=== PATIENT | female | born 1950 | race Caucasian/White ===

== ENCOUNTER 2017-09-14 16:18 | Inpatient (IN) | payer OTHER ==
[~2017-09-14] VITALS: Ht 152.4 cm; Wt 101.2 kg
[2017-09-14 16:27] VITALS: Ht 152.4 cm; Wt 101.2 kg
[2017-09-15 01:56] LABS: BASOPHIL % 1.3 % (0-2); PLATELET COUNT 342 x10^3mcL (130-400); RED CELL DISTRIBUTION WIDTH 13.3 % (11.5-14.5)
[2017-09-15 02:14] LABS: CALCIUM 9.5 mg/dL (8.5-10.1); CHLORIDE SERUM 101 mmol/L (98-107); CREATININE SERUM 0.8 mg/dL (0.6-1.0); GFR1 > 60 mL/min; GLUCOSE SERUM 226 mg/dL (74-106); POTASSIUM SERUM 4.2 mmol/L (3.5-5.1); SODIUM SERUM 139 mmol/L (136-145)
[2017-09-15 02:26] LABS: ALKALINE PHOSPHATASE 89 U/L (46-116); ALT/SGPT 29 U/L (14-59); AST/SGOT 28 U/L (15-37); BILIRUBIN TOTAL 0.42 mg/dL (0.20-1.00); TOTAL PROTEIN, SERUM 7.7 g/dL (6.4-8.2)
[2017-09-15 02:27] LABS: ALBUMIN 3.1 g/dL (3.4-5.0)
[2017-09-15 02:53] LABS: microscopic required? YES; urine erythrocyte TRACE (NEGATIVE)
[2017-09-15] MEDS ORDERED: METFORMIN HYDR500 M1 (07:08)
[2017-09-15 09:58] LABS: CHOLESTEROL/HDL RATIO 4.3
[2017-09-15 10:04] LABS: FREE T4 3.61 ng/dL (0.76-1.46); T4(THYROXINE) 11.1 ug/dL (4.7-13.3)
[2017-09-15 13:02] VITALS: BP 133/62
[2017-09-15 14:41] VITALS: BP 133/62
[2017-09-15] MEDS ORDERED: JANUMET 50-1,01 EACH PO (15:57)
[2017-09-15] MEDS ORDERED: GLUCOTROL5 MG PO (15:58)
[2017-09-15] MEDS ORDERED: CLARITIN10 MG PO (15:59)
[2017-09-15] MEDS ORDERED: ZOCOR40 MG PO (16:01)
[2017-09-15] MEDS ORDERED: COZAAR25 M1 PO (16:01)
[2017-09-15] MEDS ORDERED: NEOMYCIN/POLY B10 M1 AU (16:03)
[2017-09-15] MEDS ORDERED: MAXITROL1 OIN OU (16:04)
[2017-09-15] MEDS ORDERED: CROMOLYN SODIUM10 ML OU (16:05)
[2017-09-15] MEDS ORDERED: CLOBETASOL PROP0.05% TOP (16:07)
[2017-09-15] MEDS ORDERED: ECONAZOLE NITRATE1% TOP (16:07)
[2017-09-15] MEDS ORDERED: FLUOCINONIDE0.05% TOP (16:08)
[2017-09-15 16:21] VITALS: BP 137/72
[2017-09-15 21:19] VITALS: BP 94/64
[2017-09-16 05:28] VITALS: BP 127/58
[2017-09-16 09:43] VITALS: BP 121/59
[2017-09-16 10:35] LABS: BASOPHIL % 0.3 % (0-2); PLATELET COUNT 282 x10^3mcL (130-400); RED CELL DISTRIBUTION WIDTH 14.4 % (11.5-14.5)
[2017-09-16 10:54] LABS: CALCIUM 8.8 mg/dL (8.5-10.1); CARBON DIOXIDE 28.1 mmol/L (21-32); MAGNESIUM 1.9 mg/dL (1.8-2.4); PHOSPHOROUS 3.2 mg/dL (2.5-4.9); POTASSIUM SERUM 4.3 mmol/L (3.5-5.1)
[2017-09-16 13:25] VITALS: BP 123/59
[2017-09-16 17:30] VITALS: BP 128/58
[2017-09-16 21:19] VITALS: BP 141/60
[2017-09-17 06:06] VITALS: BP 134/64
[2017-09-17 07:50] LABS: CALCIUM 9.4 mg/dL (8.5-10.1); CARBON DIOXIDE 27.2 mmol/L (21-32); CHLORIDE SERUM 103 mmol/L (98-107); CREATININE SERUM 0.9 mg/dL (0.6-1.0); GFR1 > 60 mL/min; GLUCOSE SERUM 189 mg/dL (74-106); MAGNESIUM 2.1 mg/dL (1.8-2.4); PHOSPHOROUS 3.6 mg/dL (2.5-4.9); POTASSIUM SERUM 4.4 mmol/L (3.5-5.1); SODIUM SERUM 138 mmol/L (136-145)
[2017-09-17 07:52] LABS: BASOPHIL % 0.3 % (0-2); PLATELET COUNT 291 x10^3mcL (130-400)
[2017-09-17 08:11] LABS: RED CELL DISTRIBUTION WIDTH 14.6 % (11.5-14.5)
[2017-09-17 08:54] VITALS: BP 124/63
[2017-09-17 13:07] VITALS: BP 119/56
[2017-09-17 17:38] VITALS: BP 111/54
[2017-09-17 21:05] VITALS: BP 148/68
[2017-09-18 06:22] VITALS: BP 139/61
[2017-09-18 08:28] LABS: CALCIUM 9.5 mg/dL (8.5-10.1); CARBON DIOXIDE 28.4 mmol/L (21-32); CHLORIDE SERUM 104 mmol/L (98-107); CREATININE SERUM 0.9 mg/dL (0.6-1.0); GFR1 > 60 mL/min; GLUCOSE SERUM 137 mg/dL (74-106); MAGNESIUM 1.8 mg/dL (1.8-2.4); PHOSPHOROUS 3.6 mg/dL (2.5-4.9); POTASSIUM SERUM 4.3 mmol/L (3.5-5.1); SODIUM SERUM 140 mmol/L (136-145)
[2017-09-18 08:39] LABS: BASOPHIL % 0.3 % (0-2); PLATELET COUNT 309 x10^3mcL (130-400); RED CELL DISTRIBUTION WIDTH 14.4 % (11.5-14.5)
[2017-09-18 09:13] VITALS: BP 143/75
[2017-09-18 14:12] VITALS: BP 150/68
[2017-09-18] MEDS ORDERED: LAC PO (14:53)
[2017-09-18] MEDS ORDERED: CLINDAMYCIN HC300 MG PO (14:53)
[2017-09-18] MEDS ORDERED: LEVAQUIN750 MG PO (14:53)
[2017-09-18 16:31] VITALS: BP 150/68
== END 2017-09-18 17:42 | disposition home or self-care (01) | DRG 137 ==
LOC: ED 16:18 → DU 09-15 06:35
PROVIDERS: Emergency Medicine; Student in an Organized Health Care Education/Training Program
DX: J69.0 Pneumonitis due to inhalation of food and vomit (principal); J96.21 Acute and chronic respiratory failure with hypoxia; I50.43 Acute on chronic combined systolic (congestive) and diastolic (congestive) heart failure; E44.0 Moderate protein-calorie malnutrition; D68.69 Other thrombophilia; E11.65 Type 2 diabetes mellitus with hyperglycemia; Z68.41 Body mass index [BMI] 40.0-44.9, adult; J45.901 Unspecified asthma with (acute) exacerbation; B35.1 Tinea unguium; N39.0 Urinary tract infection, site not specified; B35.3 Tinea pedis; M94.0 Chondrocostal junction syndrome [Tietze]; E78.5 Hyperlipidemia, unspecified; Z79.84 Long term (current) use of oral hypoglycemic drugs; I11.0 Hypertensive heart disease with heart failure; Z90.710 Acquired absence of both cervix and uterus; I35.0 Nonrheumatic aortic (valve) stenosis; R07.89 Other chest pain
CPT/HCPCS: 82962; 83880; 84439; 87804; 94150; J0456; J0696; J1956; J3490; J7030; J7040; J7620; J7633; Q0092

== ENCOUNTER 2017-10-18 02:59 | Inpatient (IN) | payer OTHER ==
[~2017-10-18] VITALS: Ht 152.4 cm; Wt 98.6 kg
[~2017-10-18 02:59] MED LIST: CLARITIN10 MG PO; CLINDAMYCIN HC300 MG PO; CLOBETASOL PROP0.05% TOP; COZAAR25 M1 PO; CROMOLYN SODIUM10 ML OU; ECONAZOLE NITRATE1% TOP; FLUOCINONIDE0.05% TOP; GLUCOTROL5 MG PO; JANUMET 50-1,01 EACH PO; LAC PO; LEVAQUIN750 MG PO; MAXITROL1 OIN OU; METFORMIN HYDR500 M1; NEOMYCIN/POLY B10 M1 AU; ZOCOR40 MG PO
[2017-10-18 04:03] LABS: BASOPHIL % 1.1 % (0-2); PLATELET COUNT 337 x10^3mcL (130-400)
[2017-10-18 04:04] LABS: RED CELL DISTRIBUTION WIDTH 14.6 % (11.5-14.5)
[2017-10-18 04:15] LABS: CALCIUM 9.1 mg/dL (8.5-10.1); CARBON DIOXIDE 29.7 mmol/L (21-32); CHLORIDE SERUM 106 mmol/L (98-107); CREATININE SERUM 0.8 mg/dL (0.6-1.0); GFR1 > 60 mL/min; GLUCOSE SERUM 181 mg/dL (74-106); POTASSIUM SERUM 3.9 mmol/L (3.5-5.1); SODIUM SERUM 142 mmol/L (136-145)
[2017-10-18 04:21] LABS: ALKALINE PHOSPHATASE 69 U/L (46-116); ALT/SGPT 24 U/L (14-59); AST/SGOT 19 U/L (15-37); BILIRUBIN TOTAL 0.55 mg/dL (0.20-1.00); TOTAL PROTEIN, SERUM 7.6 g/dL (6.4-8.2)
[2017-10-18 04:22] LABS: microscopic required? NO
[2017-10-18 04:41] LABS: UA SPECIFIC GRAVITY 1.015 (1.005-1.035)
[2017-10-18 04:42] LABS: urine erythrocyte NEGATIVE (NEGATIVE)
[2017-10-18 04:53] LABS: AMPHETAMINE QUAL UR NONE DETECTED (NEG <=1000)
[2017-10-18] MEDS ORDERED: METFORMIN HCL1000 MG (06:34)
[2017-10-18] MEDS ORDERED: PIOGLITAZONE HC30 MG (06:34)
[2017-10-18] MEDS ORDERED: LOSARTAN POTASS25 M1 (06:34)
[2017-10-18] MEDS ORDERED: GLUCOTROL5 MG (06:34)
[2017-10-18] MEDS ORDERED: VENTOLIN H0.09 MG/A1 (06:35)
[2017-10-18 08:12] VITALS: BP 148/84
[2017-10-18 09:50] VITALS: BP 148/84
[2017-10-18 11:15] LABS: CHOLESTEROL/HDL RATIO 2.9; MAGNESIUM 2.1 mg/dL (1.8-2.4); PHOSPHOROUS 2.6 mg/dL (2.5-4.9)
[2017-10-18 13:48] VITALS: BP 136/71
[2017-10-18 16:54] VITALS: BP 131/66
[2017-10-18 19:54] VITALS: BP 114/56
[2017-10-19 05:21] VITALS: BP 107/56
[2017-10-19 06:56] LABS: BASOPHIL % 0.4 % (0-2); PLATELET COUNT 307 x10^3mcL (130-400)
[2017-10-19 06:59] LABS: CALCIUM 9.3 mg/dL (8.5-10.1); CARBON DIOXIDE 28.6 mmol/L (21-32); MAGNESIUM 2.1 mg/dL (1.8-2.4); PHOSPHOROUS 3.3 mg/dL (2.5-4.9)
[2017-10-19 07:18] LABS: RED CELL DISTRIBUTION WIDTH 14.6 % (11.5-14.5)
[2017-10-19 09:47] VITALS: BP 134/59
[2017-10-19 14:05] VITALS: BP 141/54
[2017-10-19 18:10] VITALS: BP 150/59
[2017-10-19 20:45] VITALS: BP 158/63
[2017-10-20 05:29] VITALS: BP 134/74
[2017-10-20 05:34] LABS: BASOPHIL % 0.4 % (0-2); PLATELET COUNT 308 x10^3mcL (130-400)
[2017-10-20 05:41] LABS: RED CELL DISTRIBUTION WIDTH 14.9 % (11.5-14.5)
[2017-10-20 05:45] LABS: CALCIUM 9.1 mg/dL (8.5-10.1); CARBON DIOXIDE 26.2 mmol/L (21-32); POTASSIUM SERUM 3.8 mmol/L (3.5-5.1)
[2017-10-20 10:13] VITALS: BP 147/71
[2017-10-20 11:04] VITALS: Ht 152.4 cm; Wt 98.6 kg
[2017-10-20 12:54] VITALS: BP 142/53
[2017-10-20 17:14] VITALS: BP 123/55
[2017-10-20 20:58] VITALS: BP 139/61
[2017-10-21 05:47] VITALS: BP 138/69
[2017-10-21 07:12] LABS: BASOPHIL % 0.9 % (0-2); PLATELET COUNT 333 x10^3mcL (130-400); RED CELL DISTRIBUTION WIDTH 14.8 % (11.5-14.5)
[2017-10-21 09:07] VITALS: BP 132/70
[2017-10-21 12:35] VITALS: BP 129/81
[2017-10-21 17:00] VITALS: BP 130/64
[2017-10-21 21:06] VITALS: BP 133/55
[2017-10-22] VITALS (12 sets, daily range): BP systolic 100–144; BP diastolic 41–76
[2017-10-22 15:00] LABS: APPEARANCE FLUID HAZY; COLOR FLUID PALE YELLOW; SOURCE FLUID THORACENTESIS
[2017-10-22 15:01] LABS: LYMPHOCYTE FLUID 80 %; RBC FLUID 1794 /cumm; WBC FLUID 1593 /cumm
[2017-10-23 06:07] LABS: BASOPHIL % 0.3 % (0-2); PLATELET COUNT 311 x10^3mcL (130-400)
[2017-10-23 06:16] VITALS: BP 124/64
[2017-10-23 06:32] LABS: CARBON DIOXIDE 28.1 mmol/L (21-32); MAGNESIUM 1.9 mg/dL (1.8-2.4); PHOSPHOROUS 3.7 mg/dL (2.5-4.9); POTASSIUM SERUM 4.3 mmol/L (3.5-5.1); RED CELL DISTRIBUTION WIDTH 15.3 % (11.5-14.5)
[2017-10-23 09:03] VITALS: BP 150/73
[2017-10-23 09:20] VITALS: BP 128/58
[2017-10-23] MEDS ORDERED: LEVAQUIN750 MG PO (09:31)
[2017-10-23] MEDS ORDERED: CLEOCIN HCL300 MG PO (09:33)
[2017-10-23] MEDS ORDERED: LAC PO (09:34)
== END 2017-10-23 15:10 | disposition home or self-care (01) | DRG 137 ==
LOC: ED 02:59 → DU 06:28 → MU 06:28 → DU 08:01 → MU 10-22 08:53
PROVIDERS: Emergency Medicine; Family Medicine
PROC: 0W993ZZ Drainage of Right Pleural Cavity, Percutaneous Approach (ICD-10-PCS; principal; 2017-10-23)
DX: J69.0 Pneumonitis due to inhalation of food and vomit (principal); E44.0 Moderate protein-calorie malnutrition; J90 Pleural effusion, not elsewhere classified; I50.9 Heart failure, unspecified; E11.65 Type 2 diabetes mellitus with hyperglycemia; I35.0 Nonrheumatic aortic (valve) stenosis; E78.2 Mixed hyperlipidemia; J45.909 Unspecified asthma, uncomplicated; Z79.84 Long term (current) use of oral hypoglycemic drugs; I12.9 Hypertensive chronic kidney disease with stage 1 through stage 4 chronic kidney disease, or unspecified chronic kidney disease; M54.5 Low back pain; D72.829 Elevated white blood cell count, unspecified; E66.01 Morbid (severe) obesity due to excess calories; E78.00 Pure hypercholesterolemia, unspecified; Z79.899 Other long term (current) drug therapy
CPT/HCPCS: 32555; 82962; 83880; 87804; 88344; 94150; C1729; J1956; J2543; J3490; J7030; J7040; J7620; Q0092

== ENCOUNTER 2018-01-04 22:34 | Inpatient (IN) | payer OTHER ==
[~2018-01-04] VITALS: Ht 157.5 cm; Wt 98.6 kg
[~2018-01-04 22:34] MED LIST changes: +CLEOCIN HCL300 MG PO; +GLUCOTROL5 MG; +LOSARTAN POTASS25 M1; +METFORMIN HCL1000 MG; +PIOGLITAZONE HC30 MG; +VENTOLIN H0.09 MG/A1
[2018-01-04 22:45] VITALS: Ht 157.5 cm; Wt 98.6 kg
[2018-01-05] VITALS (7 sets, daily range): BP systolic 114–155; BP diastolic 52–65
[2018-01-05 01:27] LABS: BASOPHIL % 0.2 % (0-2); PLATELET COUNT 342 x10^3mcL (130-400)
[2018-01-05 01:34] LABS: CALCIUM 9.4 mg/dL (8.5-10.1); CARBON DIOXIDE 31.4 mmol/L (21-32); CHLORIDE SERUM 100 mmol/L (98-107); CREATININE SERUM 0.8 mg/dL (0.6-1.0); GFR1 > 60 mL/min; GLUCOSE SERUM 186 mg/dL (74-106); POTASSIUM SERUM 4.1 mmol/L (3.5-5.1); SODIUM SERUM 137 mmol/L (136-145)
[2018-01-05 01:41] LABS: RED CELL DISTRIBUTION WIDTH 15.6 % (11.5-14.5)
[2018-01-05 01:45] LABS: ALBUMIN 3.1 g/dL (3.4-5.0); ALKALINE PHOSPHATASE 74 U/L (46-116); AST/SGOT 36 U/L (15-37); BILIRUBIN TOTAL 0.52 mg/dL (0.20-1.00); LIPASE 128 IU/L (73-393); TOTAL PROTEIN, SERUM 7.9 g/dL (6.4-8.2)
[2018-01-05 01:55] LABS: ALT/SGPT 27 U/L (14-59)
[2018-01-05 02:02] LABS: microscopic required? YES; urine erythrocyte TRACE (NEGATIVE)
[2018-01-05 02:28] LABS: OSMOLALITY SERUM 296 mOsm/kg (278-298)
[2018-01-05 04:34] LABS: FREE T4 2.57 ng/dL (0.76-1.46); FREE THYROXINE INDEX 3.9 ug/dL (1.4-4.5); T4(THYROXINE) 11.4 ug/dL (4.7-13.3)
[2018-01-05 04:36] LABS: T3 TOTAL 1.15 ng/mL
[2018-01-05 04:40] LABS: CHOLESTEROL/HDL RATIO 3.9; MAGNESIUM 2.1 mg/dL (1.8-2.4); PHOSPHOROUS 3.1 mg/dL (2.5-4.9)
[2018-01-05] MEDS ORDERED: SULFASALAZINE500 M1 PO (05:21)
[2018-01-05] MEDS ORDERED: ALDACTONE25 MG PO ×2 (05:23→06:27)
[2018-01-05] MEDS ORDERED: LASIX40 MG PO ×2 (05:24→06:27)
[2018-01-05] MEDS ORDERED: LANTUS SOLOS100 U/M1 SQ ×2 (05:26→06:27)
[2018-01-05] MEDS ORDERED: CLARITIN10 MG PO (06:27)
[2018-01-05 06:41] LABS: CALCIUM 9.1 mg/dL (8.5-10.1); CARBON DIOXIDE 30.9 mmol/L (21-32); CHLORIDE SERUM 101 mmol/L (98-107); CREATININE SERUM 0.8 mg/dL (0.6-1.0); GFR1 > 60 mL/min; GLUCOSE SERUM 183 mg/dL (74-106); POTASSIUM SERUM 4.2 mmol/L (3.5-5.1); SODIUM SERUM 138 mmol/L (136-145)
[2018-01-05 06:42] LABS: BASOPHIL % 1.7 % (0-2); PLATELET COUNT 300 x10^3mcL (130-400); RED CELL DISTRIBUTION WIDTH 15.4 % (11.5-14.5)
[2018-01-05 19:45] LABS: AMPHETAMINE QUAL UR NONE DETECTED (NEG <=1000)
[2018-01-06 05:58] VITALS: BP 132/63
[2018-01-06 06:57] LABS: CALCIUM 9.3 mg/dL (8.5-10.1); CARBON DIOXIDE 30.4 mmol/L (21-32); PHOSPHOROUS 4.5 mg/dL (2.5-4.9); POTASSIUM SERUM 4.5 mmol/L (3.5-5.1)
[2018-01-06 08:07] LABS: BASOPHIL % 0.4 % (0-2); PLATELET COUNT 304 x10^3mcL (130-400); RED CELL DISTRIBUTION WIDTH 16.1 % (11.5-14.5)
[2018-01-06 08:25] VITALS: BP 101/63
[2018-01-06 12:18] VITALS: BP 121/54
[2018-01-06 16:15] VITALS: BP 140/69
[2018-01-06 21:38] VITALS: BP 138/65
[2018-01-07 05:58] VITALS: BP 115/55
[2018-01-07 07:34] LABS: CALCIUM 9.1 mg/dL (8.5-10.1); CARBON DIOXIDE 27.9 mmol/L (21-32); POTASSIUM SERUM 4.1 mmol/L (3.5-5.1)
[2018-01-07 07:39] LABS: BASOPHIL % 0.2 % (0-2); PLATELET COUNT 295 x10^3mcL (130-400); RED CELL DISTRIBUTION WIDTH 16.1 % (11.5-14.5)
[2018-01-07 09:59] VITALS: BP 127/56
[2018-01-07] MEDS ORDERED: ECO81 PO (10:50)
[2018-01-07] MEDS ORDERED: ALD25 PO (10:50)
[2018-01-07] MEDS ORDERED: LASIX40 MG PO (10:53)
[2018-01-07] MEDS ORDERED: LEVAQUIN750 MG PO (10:53)
[2018-01-07] MEDS ORDERED: CLEOCIN HCL300 MG PO (10:54)
[2018-01-07] MEDS ORDERED: CULTURELLE1 EACH PO (10:58)
[2018-01-07 12:40] VITALS: BP 102/52
[2018-01-07 12:45] VITALS: BP 102/52
== END 2018-01-07 16:06 | disposition home or self-care (01) | DRG 137 ==
LOC: ED 22:34 → DU 01-05 03:34
PROVIDERS: Emergency Medicine; Family Medicine
DX: J69.0 Pneumonitis due to inhalation of food and vomit (principal); N17.0 Acute kidney failure with tubular necrosis; I50.43 Acute on chronic combined systolic (congestive) and diastolic (congestive) heart failure; E44.0 Moderate protein-calorie malnutrition; E11.9 Type 2 diabetes mellitus without complications; J45.909 Unspecified asthma, uncomplicated; E78.00 Pure hypercholesterolemia, unspecified; E78.5 Hyperlipidemia, unspecified; Z68.41 Body mass index [BMI] 40.0-44.9, adult; N39.0 Urinary tract infection, site not specified; I35.0 Nonrheumatic aortic (valve) stenosis; E78.2 Mixed hyperlipidemia; I11.0 Hypertensive heart disease with heart failure; E66.9 Obesity, unspecified; Z91.19 Patient's noncompliance with other medical treatment and regimen
CPT/HCPCS: 82962; 83880; 84439; 87804; J1815; J1940; J1956; J2405; J2543; J3490; J7620; Q0092

== ENCOUNTER 2018-01-09 14:46 | Emergency (ER) | payer OTHER ==
[~2018-01-09] VITALS: Ht 154.9 cm; Wt 96.6 kg
[~2018-01-09 14:46] MED LIST changes: +ALD25 PO; +ALDACTONE25 MG PO; +CULTURELLE1 EACH PO; +ECO81 PO; +LANTUS SOLOS100 U/M1 SQ; +LASIX40 MG PO; +SULFASALAZINE500 M1 PO
[2018-01-09 15:03] VITALS: Ht 154.9 cm; Wt 96.6 kg
[2018-01-09 16:14] LABS: BASOPHIL % 0.2 % (0-2); PLATELET COUNT 357 x10^3mcL (130-400)
[2018-01-09 16:23] LABS: RED CELL DISTRIBUTION WIDTH 15.5 % (11.5-14.5)
[2018-01-09 16:33] LABS: CALCIUM 9.7 mg/dL (8.5-10.1); CARBON DIOXIDE 29.5 mmol/L (21-32); CREATININE SERUM 1.1 mg/dL (0.6-1.0); POTASSIUM SERUM 3.7 mmol/L (3.5-5.1)
[2018-01-09 16:38] LABS: ALBUMIN 3.6 g/dL (3.4-5.0); BILIRUBIN TOTAL 0.6 mg/dL (0.20-1.00)
[2018-01-09] MEDS ORDERED: GLIPIZIDE2.5 M1 PO (16:55)
[2018-01-09 18:27] LABS: UA SPECIFIC GRAVITY 1.025 (1.005-1.035); microscopic required? YES; urine erythrocyte 3+ (NEGATIVE)
[2018-01-09 19:30] VITALS: BP 128/72
== END 2018-01-09 19:30 | disposition home or self-care (01) ==
LOC: ED 14:46
PROVIDERS: Emergency Medicine
DX: K29.00 Acute gastritis without bleeding (principal); N39.0 Urinary tract infection, site not specified; E11.9 Type 2 diabetes mellitus without complications
CPT/HCPCS: 83880; J2405; J7030; Q0092

== ENCOUNTER 2020-06-26 01:02 | Inpatient (IN) | payer OTHER ==
[~2020-06-26] VITALS: Ht 157.5 cm; Wt 98.1 kg
[~2020-06-26 01:02] MED LIST changes: +GLIPIZIDE2.5 M1 PO
[2020-06-26 01:24] VITALS: Ht 157.5 cm; Wt 98.1 kg
[2020-06-26 02:21] LABS: PLATELET COUNT 313 x10^3mcL (130-400); RED CELL DISTRIBUTION WIDTH 13.8 % (11.5-14.5)
[2020-06-26 02:23] LABS: BASOPHIL % 4.8 % (0-2)
--- NOTE | 2020-06-26 02:45 | NUR ---
PT AWAITING LAB AND X-RAY RESULTS. STATES FEELING BETTER.
[2020-06-26 02:47] LABS: CALCIUM 9.2 mg/dL (8.5-10.1); CHLORIDE SERUM 100 mmol/L (98-107); CREATININE SERUM 1.1 mg/dL (0.6-1.0); GLUCOSE SERUM 194 mg/dL (74-106); POTASSIUM SERUM 4.2 mmol/L (3.5-5.1); SODIUM SERUM 135 mmol/L (136-145)
[2020-06-26 02:51] LABS: ALBUMIN 3.1 g/dL (3.4-5.0); ALKALINE PHOSPHATASE 75 U/L (46-116); ALT/SGPT 19 U/L (14-59); AST/SGOT 15 U/L (15-37); BILIRUBIN TOTAL 0.4 mg/dL (0.20-1.00); MAGNESIUM 1.8 mg/dL (1.8-2.4); TOTAL PROTEIN, SERUM 7.4 g/dL (6.4-8.2)
--- NOTE | 2020-06-26 03:06 | NUR ---
PT AMB TO BATHROOM. STEADY GAIT NOTED.
[2020-06-26] MEDS ORDERED: INVOKANA300 MG PO (04:27)
[2020-06-26] MEDS ORDERED: IBU800 M2 PO (04:28)
[2020-06-26] MEDS ORDERED: DITROPAN XL5 MG PO (04:28)
[2020-06-26] MEDS ORDERED: ZESTRIL10 MG PO (04:29)
--- NOTE | 2020-06-26 06:50 | NUR ---
PT ARRIVED TO FLOOR VIA GURNEY, ACCOMPANIED BY RN. PT BREATHING REGULAR AND UNLABORED ON ROOM AIR AT REST, SAO2 96%. PT CONNECTED TO TELE MONITOR #7, SINUS RHYTHM 1ST DEGREE AV BLOCK WITH PVCS. PT CURRENTLY DENIES ANY CHEST PAIN, SOB AT REST, OR DISTRESS. PT'S VSS, CURRENTLY PENDING MEDICATION ORDERS. PT DENIES ANY RECENT TRAVEL, CONTACT WITH COVID POSITIVE PERSONS, AND SYMPTOMS OUTSIDE OF SOB WITH EXERTION. PIV TO LEFT AC 18G PATENT, NO SIGNS OF INFILTRATION, DRESSING CDI. LUNGS DIMINISHED BILATERAL LOWER LOBES, ACTIVE BS X4. WILL ENDORSE CARE TO ONCOMIGN RN.
[2020-06-26 06:51] VITALS: BP 157/74
[2020-06-26 07:10] VITALS: BP 148/45
[2020-06-26 07:52] LABS: FREE T4 2.68 ng/dL (0.76-1.46); FREE THYROXINE INDEX 3.4 ug/dL (1.4-4.5); T4(THYROXINE) 9.3 ug/dL (4.7-13.3)
--- NOTE | 2020-06-26 08:00 | NUR ---
LATE ENTRY: 0800 PT ADMITTED TO UNIT AT PAST 6 AM PER NOC RN ENDORSEMENT WITH C/O SOB WITH ASSOCIATED TACHYPNEA. AAOX4, DJIBOUTIAN SPEAKING, ASSESSMENT DONE WITH THE INTERPRETATION OF JYOTI DIAZ. PT DENIES CP OR OTHER DISCOMFORT. RESP EASY AND REGULAT AT RM AIR. SL ON THE LAC INTACT. NSG ASSESSMENT DONE; FALL AND SAFETY PRECAUTION REINFORCED. WILL CONTINUE TO MONITOR STATUS.
--- NOTE | 2020-06-26 09:00 | NUR ---
[facility] INFORMED THAT PT HAD EPISODE OF TRIGEMINY. PT WAS SEEN AND DENIES ANY CHEST PAIN; PT IS OUT OF BED AND SITTING ON BEDSIDE CHAIR.
[2020-06-26 09:11] LABS: T3 TOTAL 0.89 ng/mL
[2020-06-26 10:00] LABS: PHOSPHOROUS 2.7 mg/dL (2.5-4.9)
[2020-06-26 12:09] VITALS: BP 144/60
--- NOTE | 2020-06-26 14:08 | NUR ---
PT AMBULATES TO THE BATHROOM NEEDED, INDEPENDENT, GAIT STABLE AND TOLERATES ACIVITY WITHOUT SOB.
--- NOTE | 2020-06-26 15:44 | NUR ---
RESPIRATORY CALLED REGARDING THE ORDER OF VETOLIN
[2020-06-26 15:47] VITALS: BP 144/60
--- NOTE | 2020-06-26 16:09 | NUR ---
NARES SWAB DONE AND SENT TO LAB. PT INSTRUCTED TO COLLECT URINE SPECIMEN. CONTAINER AVAILABLE.
[2020-06-26 16:36] VITALS: BP 145/74; BP 165/66
--- NOTE | 2020-06-26 17:48 | NUR ---
URINE SAMPLE FOR CX AND UA COLLECTED AND SENT TO LAB.
[2020-06-26 18:07] LABS: microscopic required? YES; urine erythrocyte NEGATIVE (NEGATIVE)
--- NOTE | 2020-06-26 18:16 | NUR ---
DENIES CP THIS SHIFT; RESP REMAIN EASY AT RM AIR. WILL CONTINUE TO MONITOR STATUS.
--- NOTE | 2020-06-26 19:30 | NUR ---
RECEIVED PT FROM DAY SHIFT NURSE, PT IS SITTING IN CHAIR ALERT AND AWAKE A&O X4 ZAMBIAN SPEAKING. TELE 7, TRIGEMINY SR. NO C/O CHEST PAIN/PRESSURE, DIZZINESS, JOHNSON, N/V OR PALPITATIONS. PALPABLE PULSES, NO EDEMA NOTED. BREATHING IS EVEN AND UL ON RA, LUNG SOUNDS DIMINISHED BILATERAL BASES. NO SOB OR ACUTE RESPIRATORY DISTRESS AT THIS TIME. BOWEL SOUNDS ACTIVE X4, ABD IS SOFT AND ROUND, NO C/O PAIN TO PALPATION. AMBULATORY AT BASELINE. AMBULATES TOLERATED. PT REPORTS IN VOLUNTARY MOVEMENT TO RUE AT TIMES. IV TO LAC, CDI AND PATENT, FLUSHING WELL. NO C/O PAIN OR DISCOMFORT AT THIS TIME. BED AT LOWEST POSITION. CALL LIGHT IS W/IN REACH. WILL CONTINUE TO MONITOR.
[2020-06-26 20:46] VITALS: BP 132/59
--- NOTE | 2020-06-27 00:01 | NUR ---
PT IS RESTING IN BED ASLEEP. NO S/SX OF PAIN OR DISCOMFORT. NO DISTRESS NOTED. REMAINS IN STABLE CONDITION. BED IN LOWEST POSITION. CALL LIGHT IS W/IN REACH. WILL CONTINUE TO MONITOR.
[2020-06-27 05:46] VITALS: BP 151/64
--- NOTE | 2020-06-27 06:07 | NUR ---
PT IS RESTING IN BED AWAKE AND ALERT. NO C/O PAIN OR DISCOMFORT THROUGHOUT SHIFT. INFORMED PT PREVIOUSLY THAT STRICT I&O IS IN PLACE AND THAT SHE NEEDS TO VOID IN THE HAT, NONCOMPLIANT WITH I&O THERAPY, POSS LANGUAGE BARRIER. PT REPORTS VOIDING 2X "ALOT OF URINE" AND BM 1X. REMAINS IN STABLE CONDITION. VSS. NO SIGNIFICANT CHANGES AT THIS TIME. BED IN LOWEST POSITION. CALL LIGHT IS W/IN REACH. WILL ENDORSE TO DAY SHIFT NURSE.
--- NOTE | 2020-06-27 07:27 | NUR ---
RECIEVED REPORT FROM [facility] NURSE. PATIENT IS CURRENTLY AWAKE ALERT AND ORIENTED X 4 AND SITTING UP IN HER CHAIR. NO REPORT OF DIZZINESS OR SOB AT THIS TIME. PATIENT IS CURRENTLY ON ROOM AIR. CURRENTLY PENDING CARDIOLOGY CONSULT AND ECHO RESULTS. IV CURRENTLY TO THE LAC AND SALINE LOCKED. SAFETY PRECAUTIONS IN PLACE, CALL LIGHT WITHIN REACH, WILL CONTINUE TO PROVIDE CARE FOR PATIENT.
[2020-06-27 08:26] LABS: BASOPHIL % 0.3 % (0-2); PLATELET COUNT 293 x10^3mcL (130-400); RED CELL DISTRIBUTION WIDTH 14.1 % (11.5-14.5)
[2020-06-27 08:38] LABS: MAGNESIUM 2.1 mg/dL (1.8-2.4)
[2020-06-27 08:50] VITALS: BP 135/59
--- NOTE | 2020-06-27 08:57 | NUR ---
NEW IV 22 GUAGE INSERTED TO RIGHT FOREARM.
[2020-06-27 09:16] LABS: CALCIUM 9.1 mg/dL (8.5-10.1); CARBON DIOXIDE 28.3 mmol/L (21-32); CHLORIDE SERUM 100 mmol/L (98-107); GLUCOSE SERUM 181 mg/dL (74-106); POTASSIUM SERUM 3.7 mmol/L (3.5-5.1); SODIUM SERUM 137 mmol/L (136-145)
[2020-06-27 12:56] VITALS: BP 135/61
[2020-06-27 16:19] VITALS: BP 142/66
--- NOTE | 2020-06-27 18:49 | NUR ---
NO REPORT OF CHEST PAIN, SOB OR DIZZINESS THROUGHOUT THE DAY. PATIENT HAD AN ECHOCARDIOGRAM COMPLETED TODAY. ECHOCARDIOGRAM READ BY DR. HENLEY. PATIENT ALSO SEEN BY ROLL FORMING MACHINE SET UP MECHANIC DR. HENLEY TODAY. IV REMAINS SALINE LOCKED TO THE ALC. PATIENT CONTINUES TO RECIEVE GENTLE DIURESIS WITH LASIX 20 MG IV BID. WILL REPORT ALL FURTHER CARE TO [facility] NURSE.
--- NOTE | 2020-06-27 19:30 | NUR ---
RECEIVED PT FROM DAY SHIFT NURSE, PT IS RESTING IN BED AWAKE AND ALERT A&OX4. TELE 7, SR W/ 1ST AV BLOCK. DENIES CP/PRESSURE, DIZZINESS, JOHNSON, N/V OR PALPITATIONS. PALPABLE PULSES, NO EDEMA NOTED. BREATHING IS EVEN AND UL ON RA, LUNG SOUNDS DIMINISHED BILATERAL BASES. NO SOB OR ACUTE RESPIRATORY DISTRESS NOTED. BOWEL SOUNDS ACTIVE X4, ABD IS SOFT AND ROUND, NO C/O PAIN TO PALPATION. AMBULATORY AT BASELINE, AMBULATES TOLERATED. SKIN IS INTACT. NO C/O PAIN OR DISCOMFORT AT THIS TIME. IV TO LAC, CDI, SALINE LOCKED. BED IN LOWEST POSITION. CALL LIGHT IS W/IN REACH. WILL CONTINUE TO MONITOR.
--- NOTE | 2020-06-27 20:00 | NUR ---
SPOKE TO DR. RAMIREZ REGARDING DR. HENLEY CONSULT AND RECOMMENDATION TO INCREASE LIPITOR TO 40MG. PER DR. RAMIREZ, HE AGREES AND ORDERED TO INCREASE LIPITOR TO 40MG.
[2020-06-27 20:45] VITALS: BP 152/68
--- NOTE | 2020-06-28 00:19 | NUR ---
PT IS RESTING IN BED ASLEEP. NO S/SX OF PAIN OR DISCOMFORT NOTED. PT ATE FAUSTO [employer]ACKERS FOR SNACK. BREATHING IS EVEN AND UL ON RA, NO SOB NOTED. REMAINS IN STABLE CONDITION. BED IN LOWEST POSITION. CALL LIGHT IS W/IN REACH. WILL CONTINUE TO MONITOR.
[2020-06-28 05:24] VITALS: BP 133/65
--- NOTE | 2020-06-28 06:02 | NUR ---
PT IS RESTING IN BED AWAKE AND ALERT. BS WNL, NO COVERAGE NEEDED. VSS. NO C/O PAIN OR DISCOMFORT THROUGHOUT SHIFT. BREATHING IS EVEN AND UL ON RA, NO SOB NOTED. VSS. REMAINS IN STABLE CONDITION. NO SIGNIFICANT CHANGES AT THIS TIME. BED IN LOWEST POSITION. CALL LIGHT IS W/IN REACH. WILL ENDORSE TO DAY SHIFT NURSE.
--- NOTE | 2020-06-28 07:20 | NUR ---
RECEIVED PT FROM FRUIT VENDOR RN. AOX4 ABLE TO MAKE NEEDS KNOWN, GREENLANDIC SPEAKING, DENIES JOHNSON/DIZZINESS. TELE 7 SR W 1ST DEG AC BLOCK. DIMINISHED LUNG SOUNDS, ON RA, 02 SAT 95, DENIES SOB/COUGH, RESP E/U. PT SITTING UP IN CHAIR, DENIES DYSPNEA. ABDOMEN SOFT/ROUND, DENIES N/V/D, NONTENDER. VOIDS FREELY, BRP. SKIN INTACT. NO C/O PAIN AT THE TIME. IV TO LAC PATENT, SALINE LOCKED. CALL LIGHT IN REACH, WILLL CONTINUE TO MONITOR.
[2020-06-28 07:59] LABS: BASOPHIL % 0.4 % (0-2); PLATELET COUNT 320 x10^3mcL (130-400); RED CELL DISTRIBUTION WIDTH 14.8 % (11.5-14.5)
[2020-06-28 08:14] LABS: CARBON DIOXIDE 31.1 mmol/L (21-32); CHLORIDE SERUM 102 mmol/L (98-107); PHOSPHOROUS 3.2 mg/dL (2.5-4.9); POTASSIUM SERUM 3.1 mmol/L (3.5-5.1); SODIUM SERUM 141 mmol/L (136-145)
[2020-06-28 08:33] LABS: CALCIUM 9.2 mg/dL (8.5-10.1); GLUCOSE SERUM 120 mg/dL (74-106); MAGNESIUM 2.2 mg/dL (1.8-2.4)
[2020-06-28 08:38] VITALS: BP 112/64
[2020-06-28 12:35] VITALS: BP 122/57
[2020-06-28] MEDS ORDERED: ATORVASTATIN CA40 M1 PO (16:01)
[2020-06-28] MEDS ORDERED: ECO81 PO (16:01)
[2020-06-28] MEDS ORDERED: COZ25 PO (16:01)
[2020-06-28 17:18] VITALS: BP 143/78
--- NOTE | 2020-06-28 17:49 | NUR ---
PT RECEIVED DC INSTRUCTIONS. PT AWARE OF NEW MEDICATION TO TAKE, FREQUENCY, TIME, AND DOSAGES. PT AWARE THAT SHE NEEDS TO MAKE F/U APPT FOR TAVR WITH DR KENNEY PÉREZ, PHONE NUMBER GIVEN. PT ALSO AWARE OF F/U APPT THAT HAS ALREADY BEEN SCHEDULED FOR HER. PT'S MEDICATION CALLED IN TO PHARMACY. ALL QUESTIONS AND CONCERNS ANSWERED, NO COMPLICATIONS NOTED DURING DISCHARGE. IV CATHETER DC, INTACT. PT GIVEN DC PACKET.
== END 2020-06-28 18:34 | disposition home or self-care (01) | DRG 194 ==
LOC: ED 01:02 → DU 04:08
PROVIDERS: Emergency Medicine; ADMIT Internal Medicine; ATTEND Internal Medicine
DX: I11.0 Hypertensive heart disease with heart failure (principal); E11.9 Type 2 diabetes mellitus without complications; I42.9 Cardiomyopathy, unspecified; E44.1 Mild protein-calorie malnutrition; D72.829 Elevated white blood cell count, unspecified; I35.0 Nonrheumatic aortic (valve) stenosis; E78.5 Hyperlipidemia, unspecified; J45.909 Unspecified asthma, uncomplicated; I50.23 Acute on chronic systolic (congestive) heart failure; Z20.828 Contact with and (suspected) exposure to other viral communicable diseases; Z79.899 Other long term (current) drug therapy; Z68.41 Body mass index [BMI] 40.0-44.9, adult; Z79.82 Long term (current) use of aspirin; Z79.01 Long term (current) use of anticoagulants; Z79.2 Long term (current) use of antibiotics; Z79.4 Long term (current) use of insulin; Z87.01 Personal history of pneumonia (recurrent)
CPT/HCPCS: 36600; 82962; 83880; 84439; G0378; J1644; J1815; J1940; J3535; Q0092